=== PATIENT | male | born 1980 | race Caucasian/White ===

== ENCOUNTER 2019-12-16 08:12 | Emergency (ER) | payer SELFPAY ==
[2019-12-16] MEDS ORDERED: Sodium Chloride 0.9% 10 ML Syringe FLUSH PRN ×2 (08:36→09:20)
[2019-12-16] MEDS ORDERED: Sodium Chloride 0.9% 1,000 ML IV STA (08:36)
[2019-12-16] MEDS ORDERED: Ketorolac 30 MG/ML SDV IVPUSH ONE (08:38)
[2019-12-16] MEDS ORDERED: Ondansetron 4 MG/2 ML SDV IVPUSH ONE (08:38)
--- NOTE | 2019-12-16 08:41 | EDM.PDOC ---
ED HPI GENERAL MEDICAL PROBLEM - General Chief Complaint: General Stated Complaint: RT SIDE SHARP PAIN Time Seen by Provider: 12/16/19 08:31 Source of Information: Reports: Patient, Family, RN Notes Reviewed History Limitations: Reports: No Limitations - History of Present Illness INITIAL COMMENTS - FREE TEXT/NARRATIVE: 39-year-old gentleman presents emergency department a complaint of right-sided flank pain he states is been ongoing for about a week is progressively gotten worse he is nauseated with that no history of abdominal surgeries he does have a remote history of a kidney stone about 20 years ago. He states this does feel different the pain seems to be more constant and waxing and waning Right Lower Abdomen Pain Score (Numeric/FACES): 10 - Related Data Allergies Allergy/AdvReac Type Severity Reaction Status Date / Time No Known Allergies Allergy Verified 12/16/19 08:32 Home Meds: Home Meds Acetaminophen/oxyCODONE [Percocet 325-5 MG] 1 each PO TID PRN #10 tab 12/16/19 [Rx] PARoxetine [Paxil] 10 mg PO DAILY 12/16/19 [History] Pregabalin [Lyrica] 75 mg PO DAILY 12/16/19 [History] Past Medical History Musculoskeletal History: Reports: Other (See Below) Other Musculoskeletal History: spinal stenosis Social & Family History - Tobacco Use Smoking Status *Q: Current Every Day Smoker Years of Tobacco use: 15 Packs/Tins Daily: 0.5 - Caffeine Use Caffeine Use: Reports: Coffee, Soda, Tea - Recreational Drug Use Recreational Drug Use: No ED ROS GENERAL - Review of Systems Review Of Systems: See Below Constitutional: Reports: No Symptoms HEENT: Reports: No Symptoms Respiratory: Reports: No Symptoms Cardiovascular: Reports: No Symptoms GI/Abdominal: Reports: Abdominal Pain, Flatus, Nausea. Denies: Vomiting : Reports: No Symptoms Musculoskeletal: Reports: Back Pain ED EXAM, GENERAL - Physical Exam Exam: See Below Exam Limited By: No Limitations General Appearance: Alert, Mild Distress Respiratory/Chest: No Respiratory Distress, Lungs Clear, Normal Breath Sounds, No Accessory Muscle Use, Chest Non-Tender Cardiovascular: Regular Rate, Rhythm, No Murmur GI/Abdominal: Normal Bowel Sounds, Soft, No Distention, Tender (Right flank) Back Exam: Normal Inspection, Full Range of Motion. No: CVA Tenderness (R), CVA Tenderness (L) Course - Vital Signs Last Recorded V/S: Last Vital Signs Temp 97.6 F 12/16/19 10:04 Pulse 60 12/16/19 10:04 Resp 17 12/16/19 10:04 BP 114/63 12/16/19 10:04 Pulse Ox 99 12/16/19 10:04 - Orders/Labs/Meds Orders: Active Orders 24 hr Category Date Time Status Peripheral IV Care [RC] . DIRECTED Care 12/16/19 08:37 Active UA W/MICROSCOPIC [URIN] Urgent Lab 12/16/19 08:36 Ordered Iopamidol [Isovue-300 (61%)] Med 12/16/19 09:30 Active 128 ml IV . DIRECTED Sodium Chloride 0.9% [Saline Flush] Med 12/16/19 08:36 Active 10 ml FLUSH ASDIRECTED PRN Sodium Chloride 0.9% [Saline Flush] Med 12/16/19 09:20 Active 10 ml FLUSH ONETIME PRN Peripheral IV Insertion Adult [OM.PC] Urgent Oth 12/16/19 08:36 Ordered Medication Orders Iopamidol (Isovue-300 (61%)) 128 ml IV . DIRECTED RIKI Last Admin: 12/16/19 09:29 Dose: 128 ml Documented by: BART Sodium Chloride (Saline Flush) 10 ml FLUSH ASDIRECTED PRN PRN Reason: Keep Vein Open Last Admin: 12/16/19 08:49 Dose: 10 ml Documented by: MOE Sodium Chloride (Saline Flush) 10 ml FLUSH ONETIME PRN PRN Reason: PER RADIOLOGY PROTOCOL Last Admin: 12/16/19 09:29 Dose: 10 ml Documented by: BART Labs: Laboratory Tests 12/16/19 12/16/19 12/16/19 Range/Units 08:49 08:49 08:49 WBC 5.8 (4.5-11.0) K/uL RBC 5.48 (4.30-5.90) M/uL Hgb 16.9 H (12.0-15.0) g/dL Hct 49.5 (40.0-54.0) % MCV 90 (80-98) fL MCH 31 (27-31) pg MCHC 34 (32-36) % Plt Count 189 (150-400) K/uL Neut % (Auto) 61 (36-66) % Lymph % (Auto) 27 (24-44) % Gaston % (Auto) 10 H (2-6) % Eos % (Auto) 2 (2-4) % Baso % (Auto) 0 (0-1) % Sodium 139 L (140-148) mmol/L Potassium 4.0 (3.6-5.2) mmol/L Chloride 103 (100-108) mmol/L Carbon Dioxide 26 (21-32) mmol/L Anion Gap 14.0 (5.0-14.0) mmol/L BUN 18 (7-18) mg/dL Creatinine 1.2 (0.8-1.3) mg/dL Est Cr Clr Drug Dosing 88.92 mL/min Estimated GFR (MDRD) > 60 (>60) Glucose 92 (74-106) mg/dL Lactic Acid 1.1 (0.4-2.0) mmol/L Calcium 9.0 (8.5-10.1) mg/dL Total Bilirubin 0.7 (0.2-1.0) mg/dL AST 30 (15-37) U/L ALT 40 (12-78) U/L Alkaline Phosphatase 68 (46-116) U/L Total Protein 7.8 (6.4-8.2) g/dL Albumin 4.2 (3.4-5.0) g/dL Globulin 3.6 H (2.3-3.5) g/dL Albumin/Globulin Ratio 1.2 (1.2-2.2) Lipase 96 (73-393) U/L Meds: Medications Generic Name Dose Route Start Last Admin Trade Name Freq PRN Reason Stop Dose Admin Iopamidol 128 ml 12/16/19 09:30 12/16/19 09:29 Isovue-300 (61%) IV 128 ml . DIRECTED RIKI Administration Sodium Chloride 10 ml 12/16/19 08:36 12/16/19 08:49 Saline Flush FLUSH 10 ml ASDIRECTED PRN Administration Keep Vein Open Sodium Chloride 10 ml 12/16/19 09:20 12/16/19 09:29 Saline Flush FLUSH 10 ml ONETIME PRN Administration PER RADIOLOGY PROTOCOL Discontinued Medications Generic Name Dose Route Start Last Admin Trade Name Freq PRN Reason Stop Dose Admin Fentanyl 100 mcg 12/16/19 09:58 12/16/19 10:03 Sublimaze IVPUSH 12/16/19 09:59 100 mcg ONETIME ONE Administration Sodium Chloride 1,000 mls @ 500 mls/hr 12/16/19 08:36 12/16/19 08:55 Normal Saline IV 12/16/19 10:35 500 mls/hr .BOLUS STA Administration Sodium Chloride 79 mls @ 3 mls/sec 12/16/19 09:20 12/16/19 09:29 Normal Saline IV 12/16/19 09:21 3 mls/sec ONETIME ONE Administration Ketorolac Tromethamine 30 mg 12/16/19 08:38 12/16/19 08:47 Toradol IVPUSH 12/16/19 08:39 30 mg ONETIME ONE Administration Ondansetron HCl 4 mg 12/16/19 08:38 12/16/19 08:48 Zofran IVPUSH 12/16/19 08:39 4 mg ONETIME ONE Administration Departure - Departure Time of Disposition: 10:53 Disposition: Home, Self-Care 01 Condition: Fair Clinical Impression: Abdominal pain Qualifiers: Abdominal location: unspecified location Qualified Code(s): R10.9 - Unspecified abdominal pain - Discharge Information Prescriptions: Acetaminophen/oxyCODONE [Percocet 325-5 MG] 1 each PO TID PRN #10 tab PRN Reason: Pain Instructions: Abdominal Pain, Adult, [id number] Referrals: PCP,None [Primary Care Provider] - Forms: ED Department Discharge Additional Instructions: Continue to use the Percocet as needed for pain control, please follow-up with your primary care for further evaluation in the next 3 to 5 days, call or return to the emergency department worsening of symptoms Sepsis Event Note (ED) - Focused Exam Vital Signs: Vital Signs Temp Pulse Resp BP Pulse Ox 12/16/19 10:04 97.6 F 60 17 114/63 99 12/16/19 09:46 60 114/63 99 12/16/19 08:26 97.6 F 73 17 128/82 98 - My Orders Last 24 Hours: My Active Orders 12/16/19 08:36 UA W/MICROSCOPIC [URIN] Urgent Sodium Chloride 0.9% [Saline Flush] 10 ml FLUSH ASDIRECTED PRN Peripheral IV Insertion Adult [OM.PC] Urgent 12/16/19 08:37 Peripheral IV Care [RC] . DIRECTED 12/16/19 09:20 Sodium Chloride 0.9% [Saline Flush] 10 ml FLUSH ONETIME PRN 12/16/19 09:30 Iopamidol [Isovue-300 (61%)] 128 ml IV . DIRECTED - Assessment/Plan Last 24 Hours: My Active Orders 12/16/19 08:36 UA W/MICROSCOPIC [URIN] Urgent Sodium Chloride 0.9% [Saline Flush] 10 ml FLUSH ASDIRECTED PRN Peripheral IV Insertion Adult [OM.PC] Urgent 12/16/19 08:37 Peripheral IV Care [RC] . DIRECTED 12/16/19 09:20 Sodium Chloride 0.9% [Saline Flush] 10 ml FLUSH ONETIME PRN 12/16/19 09:30 Iopamidol [Isovue-300 (61%)] 128 ml IV . DIRECTED Plan: Assessment Acuity = acute Site and laterality = abdominal pain Etiology = unknown Manifestations = none Location of injury = Home Lab values = CBC, CMP unremarkable urinalysis pending, CT scan of the abdomen shows no acute process Plan He had some relief with the fentanyl provided in the emergency department felt the Toradol provided him no relief prescription written for Percocet 5/325 1 tab p.o. 3 times daily PRN total #10 faxed to [facility] pharmacy he is going to follow-up with his primary care for further evaluation he is not had any further evaluation of his spinal stenosis which may be contributing to the problem. This note was dictated using [employer] voice recognition software please call with any questions on syntax or grammar.
[2019-12-16] MEDS ORDERED: Iopamidol 612 MG/ML 150 ML Bottle IV SCH (09:30)
[2019-12-16] MEDS ORDERED: fentaNYL 100 MCG/2 ML SDV IVPUSH ONE (09:58)
--- NOTE | 2019-12-16 10:19 | CT ---
Abdomen Pelvis w Cont CLINICAL HISTORY: Right flank pain COMPARISON: None. TECHNIQUE: Transverse scans were obtained from the base of the lungs to the pubic symphysis following oral contrast and IV infusion of contrast.Auto dosage reduction and iterative reconstructiontechniques employed. FINDINGS: The lung bases are clear. The liver shows no mass or biliary dilatation. The gallbladder has a normal contour. The spleen has a normal size and shape. The pancreas shows no mass or inflammatory change. The adrenal glands appear normal bilaterally . The kidneys show no mass, stones or hydronephrosis. There is a retroaortic left renal vein. The ureters have normal course and caliber. The bladder has a normal contour. The aorta has a normal contour. There is no suspicious retroperitoneal adenopathy. Intestinal configuration is nonacute. The appendix has a normal contour. IMPRESSION: Negative CT of the abdomen
== END 2019-12-16 11:05 | disposition home or self-care (01) ==
LOC: JP.ED 08:12
DX: R10.31 Right lower quadrant pain (principal); F17.210 Nicotine dependence, cigarettes, uncomplicated; Z79.899 Other long term (current) drug therapy
CPT/HCPCS: 36415; 74177; 80053; 83605; 83690; 85025; 96361; 96374; 96375; 99284; J1885; J2405; J3010; J7030; J7050; Q9967